=== PATIENT | male | born 1945 | race Caucasian/White ===

== ENCOUNTER → 2016-03-24 | Outpatient (CLI) | payer MEDICARE, OTHER | LOC: GMAB 12:59 | PROVIDERS: ATTEND Family Medicine | DX: I10 Essential (primary) hypertension (principal) ==

== ENCOUNTER 2016-05-08 05:55 | Day surgery (SDC) | payer MEDICARE ==
[2016-05-08] MEDS ORDERED: LACTATED RINGERS 1,000 ML ONE (06:11)
[2016-05-08] MEDS ORDERED: PROPOFOL 200 MG/20 ML VIAL IV ONE (07:00)
[2016-05-08 08:21] VITALS: BP 162/85; TEMP 97.3; O2SAT 100
--- NOTE | 2016-05-08 10:45 | OP ---
DATE OF PROCEDURE: 05/08/16 PREOPERATIVE DIAGNOSIS: 1. Colon cancer screen. POSTOPERATIVE DIAGNOSIS: 1. Normal colon to the cecum. PROCEDURE: 1. Colonoscopy. SURGEON: Og Samaniego MD. ANESTHESIA: MAC by Gareth Perez CRNA. ESTIMATED BLOOD LOSS: None. COMPLICATIONS: None apparent. TECHNIQUE: After informed consent was obtained from the patient, the patient was taken to the Endoscopy Suite and put in the left lateral decubitus position. After adequate IV sedation was obtained, a digital rectal exam was performed which revealed some old hemorrhoidal tags, decreased sphincter tone and no intraluminal masses and a normal sized, anodular prostate area. The colonoscope was then passed with good visualization all the way through the colon. The bowel prep was great. The cecum was readily identified by the presence of ileocecal valve and appendiceal orifice. The scope was then withdrawn slowly over the next 8 minutes and a good look at the entire colonic mucosa was obtained. There were no abnormalities, polyps, masses, etc., found. The scope was removed. The patient tolerated the procedure well. The patient was transported to the outpatient area in good condition. I have recommended a high fiber diet. He will followup with me on an as needed basis. #[id number] cc: Mono De Los Santos MD [facility]
== END 2016-05-08 08:10 | disposition home or self-care (01) ==
LOC: AMB 05:55
PROVIDERS: ATTEND Family Medicine
DX: Z12.11 Encounter for screening for malignant neoplasm of colon (principal); E11.9 Type 2 diabetes mellitus without complications; I10 Essential (primary) hypertension; E78.00 Pure hypercholesterolemia, unspecified; Z79.82 Long term (current) use of aspirin; Z79.899 Other long term (current) drug therapy
CPT/HCPCS: 00810; 36416; 82948; G0121; J3490; J7120

== ENCOUNTER → 2017-03-30 | Outpatient (CLI) | payer MEDICARE | END | disposition home or self-care (01) | LOC: GMAM 10:56 | PROVIDERS: ATTEND Family Medicine | DX: Z12.5 Encounter for screening for malignant neoplasm of prostate (principal); I10 Essential (primary) hypertension | CPT/HCPCS: 84443; G0103 ==

== ENCOUNTER → 2017-06-08 | Outpatient (CLI) | payer MEDICARE, OTHER ==
--- NOTE | 2017-06-08 09:11 | RAD ---
EXAM DESCRIPTION: Pelvis CLINICAL HISTORY: 71 years Male, PAIN IN LEFT HIP COMPARISON: None FINDINGS: Evaluation of the pelvis with attention to the hips demonstrates mild degenerative changes, slightly worse on the left than the right but without fracture or dislocation or destructive process. No soft tissue masses are noted in the bones are normally mineralized. IMPRESSION: No acute injury noted. Electronically signed by: Sage Herrera MD 06/08/2017 9:10 AM CDT
== END ==
LOC: RAD 08:05
PROVIDERS: ATTEND Orthopaedic Surgery
DX: M25.551 Pain in right hip (principal); M25.552 Pain in left hip

== ENCOUNTER → 2018-03-24 | Outpatient (CLI) | payer MEDICARE, OTHER | LOC: GMAE 11:11 | PROVIDERS: ATTEND Family Medicine | DX: I10 Essential (primary) hypertension (principal) ==

== ENCOUNTER → 2018-04-08 | Outpatient (CLI) | payer MEDICARE, OTHER ==
--- NOTE | 2018-04-08 13:50 | US ---
EXAM DESCRIPTION: Aorta: Ultrasound. CLINICAL HISTORY: Z13.89 AAA SCREENING COMPARISON: CT scan abdomen and pelvis with IV contrast 05/05/2007. TECHNIQUE: Transcutaneous scanning: Two-dimensional and Doppler modes. FINDINGS: Abdominal aorta diameter - Proximal: 2.0 x 1.9 cm. Mid: 2.7 x 2.5 cm. Distal: 2.1 x 1.8 cm. Common Iliac diameter - Right: 9.5 mm. Left: 9.2 mm. Other: Atherosclerotic intimal wall changes. IMPRESSION: Ectasia of the abdominal aorta but no aneurysm. Greatest diameter of the mid segment which is increased slightly compared to the prior CT scan of the abdominal aorta April 2007. Electronically signed by: Parminder Ogden MD 04/08/2018 1:48 PM FACIAL OPERATOR
== END ==
LOC: US 09:06
PROVIDERS: ATTEND Family Medicine
DX: Z13.89 Encounter for screening for other disorder (principal); I77.811 Abdominal aortic ectasia

== ENCOUNTER → 2019-03-31 | Outpatient (CLI) | payer MEDICARE, OTHER | LOC: GMAE 11:19 | PROVIDERS: ATTEND Family Medicine | DX: I10 Essential (primary) hypertension (principal); E11.9 Type 2 diabetes mellitus without complications; E29.9 Testicular dysfunction, unspecified; Z12.5 Encounter for screening for malignant neoplasm of prostate | CPT/HCPCS: 84403; 84443; G0103 ==

== ENCOUNTER 2019-07-11 05:36 | Day surgery (SDC) | payer MEDICARE, OTHER ==
[2019-07-11] MEDS ORDERED: MOXIFLOXACIN HCL (OPHTH) 1 DROP DROPS ONE (05:51)
[2019-07-11] MEDS ORDERED: TROP1%/CYCLOPEN 1%/PHENYL 2.5% DROPS ONE (05:52)
[2019-07-11] MEDS ORDERED: PROPARACAINE 0.5% OPHTH SOL 15 ML BTTL ONE (05:52)
[2019-07-11] MEDS ORDERED: MIDAZOLAM INJ 2 MG/2 ML VIAL ONE (10:44)
[2019-07-11] MEDS ORDERED: PROPARACAINE 0.5% OPHTH SOL 15 ML BTTL LEFT_EYE ONE (10:47)
[2019-07-11] MEDS ORDERED: LIDOCAINE 1% MPF 2 ML VIAL INJ ONE (11:00)
[2019-07-11] MEDS ORDERED: DEXAMETHASONE 0.1% OPHTH SOL 1 DROP LEFT_EYE ONE ×2 (11:01→11:09)
[2019-07-11] MEDS ORDERED: TOBRAMYCIN SULF 0.3 % OPHT SOL 1 DROP LEFT_EYE ONE ×2 (11:01→11:09)
[2019-07-11] MEDS ORDERED: MOXIFLOXACIN HCL (OPHTH) 1 DROP DROPS LEFT_EYE ONE ×2 (11:01→11:09)
[2019-07-11] MEDS ORDERED: BRIMONIDINE 0.2% OPHTH DROPS LEFT_EYE ONE ×2 (11:02→11:09)
== END 2019-07-11 11:55 | disposition home or self-care (01) ==
LOC: AMB 05:36
PROVIDERS: ATTEND Ophthalmology
DX: H25.12 Age-related nuclear cataract, left eye (principal); I10 Essential (primary) hypertension; E11.9 Type 2 diabetes mellitus without complications; I25.10 Atherosclerotic heart disease of native coronary artery without angina pectoris; I25.2 Old myocardial infarction; Z87.891 Personal history of nicotine dependence; Z79.82 Long term (current) use of aspirin; Z79.84 Long term (current) use of oral hypoglycemic drugs; Z79.899 Other long term (current) drug therapy
CPT/HCPCS: 00142; 36416; 66984; 82948; J2250

== ENCOUNTER 2019-07-25 05:35 | Day surgery (SDC) | payer MEDICARE, OTHER ==
[2019-07-25] MEDS ORDERED: TROP1%/CYCLOPEN 1%/PHENYL 2.5% DROPS ONE (05:53)
[2019-07-25] MEDS ORDERED: PROPARACAINE 0.5% OPHTH SOL 15 ML BTTL ONE (05:53)
[2019-07-25] MEDS ORDERED: MOXIFLOXACIN HCL (OPHTH) 1 DROP DROPS ONE (05:53)
[2019-07-25] MEDS ORDERED: MIDAZOLAM INJ 2 MG/2 ML VIAL ONE (09:35)
[2019-07-25] MEDS ORDERED: LIDOCAINE 1% 2 ML VIAL INJ ONE ×2 (09:36→10:03)
[2019-07-25] MEDS ORDERED: PROPARACAINE 0.5% OPHTH SOL 15 ML BTTL RIGHT_EYE ONE ×2 (09:36→10:03)
[2019-07-25] MEDS ORDERED: DEXAMETHASONE 0.1% OPHTH SOL 1 DROP RIGHT_EYE ONE ×2 (09:37→10:03)
[2019-07-25] MEDS ORDERED: MOXIFLOXACIN HCL (OPHTH) 1 DROP DROPS RIGHT_EYE ONE ×2 (09:37→10:03)
[2019-07-25] MEDS ORDERED: BRIMONIDINE 0.2% OPHTH DROPS RIGHT_EYE ONE ×2 (09:38→10:03)
[2019-07-25] MEDS ORDERED: TOBRAMYCIN SULF 0.3 % OPHT SOL 1 DROP RIGHT_EYE ONE ×2 (09:38→10:03)
== END 2019-07-25 11:00 | disposition home or self-care (01) ==
LOC: AMB 05:35
PROVIDERS: ATTEND Ophthalmology
DX: E11.36 Type 2 diabetes mellitus with diabetic cataract (principal); H25.11 Age-related nuclear cataract, right eye; E66.9 Obesity, unspecified; I10 Essential (primary) hypertension; F17.220 Nicotine dependence, chewing tobacco, uncomplicated; Z79.82 Long term (current) use of aspirin; Z79.84 Long term (current) use of oral hypoglycemic drugs; Z79.899 Other long term (current) drug therapy
CPT/HCPCS: 00142; 36416; 66984; 82948; J2250

== ENCOUNTER 2020-03-11 10:22 | Emergency (ER) | payer MEDICARE, OTHER ==
[2020-03-11] MEDS ORDERED: DIPHENOXYLATE HCL/ATROPINE 2.5 MG TAB PO ONE (10:57)
[2020-03-11] MEDS ORDERED: SODIUM CHLORIDE 0.9% 1000ML 1,000 ML IVS ONE (10:57)
--- NOTE | 2020-03-11 11:01 | ED.PDOC ---
History of Present Illness - General Chief Complaint: Respiratory Problem Stated Complaint: fatigue r/t COVID Time Seen by Provider: 03/11/20 10:56 Additional Information: Patient is a 74-year-old male who presents to the ED with chief complaint of diarrhea. Patient has had diarrhea for the past 8 days which prompted him to obtain a Covid test which was positive 3 days ago. Patient complains of mild muscle aches and fatigue and says he feels dehydrated. He has had poor p.o. intake over the past few days and is drinking insufficient amount of fluids according to his . Patient denies any abdominal pain, chest pain, shortness of breath, cough, nausea, vomiting. He denies any black or bloody stools. Patient indicates that his diarrhea is unusual for him and that in general he has no abdominal problems. Review of Systems - Review of Systems Constitutional: States: weakness. Denies: chills, fever EENTM: States: no symptoms reported Respiratory: States: no symptoms reported. Denies: cough, short of breath Cardiology: States: no symptoms reported. Denies: chest pain, palpitations Gastrointestinal/Abdominal: States: see HPI, diarrhea. Denies: nausea, vomiting Genitourinary: States: no symptoms reported. Denies: dysuria Skin: States: no symptoms reported. Denies: rash Neurological: Denies: headache All other Systems: Reviewed and Negative Past Medical History (General) - Patient Medical History Hx Congestive Heart Failure: No Hx Diabetes: No Hx MRSA: No Family Medical History - Family History Mother Family History: No Known Physical Exam - Physical Exam General Appearance: Alert, Comfortable, No apparent distress, Well Developed, Well Nourished Eyes, Ears, Nose, Throat Exam: normal ENT inspection Neck: supple, normal inspection Respiratory: chest non-tender, lungs clear, normal breath sounds, no respiratory distress, no accessory muscle use Cardiovascular/Chest: normal peripheral pulses, regular rate, rhythm, no edema, no gallop, no JVD, no murmur Peripheral Pulses: No deficit Gastrointestinal/Abdominal: normal bowel sounds, non tender, soft, no organomegaly, no pulsatile mass Back Exam: normal inspection, no CVA tenderness, no vertebral tenderness Extremity: normal range of motion, non-tender, normal inspection Neurologic: shellfish shucker II-XII nml as tested, no motor/sensory deficits, alert, normal mood/affect, oriented x 3 Skin Exam: normal color, warm/dry Progress - Progress Progress: 03/11/20 11:03 Differential diagnosis includes but is not limited to dehydration, electrolyte disorder, Covid, colitis. Colitis is ruled out with absence of abdominal t enderness to palpation and pain. 03/11/20 45 EKG: Normal sinus rhythm, rate 65, normal axis, normal QRS, prolonged DE, Q waves septal, normal ST segment, nonspecific T wave changes, negative STEMI. 03/11/20 12:29 Patient reassessed and he is feeling much better at this time following IV fluids. Patient's labs are unremarkable including his creatinine, his stool studies are pending. Will DC with mckay Price and patient to follow-up with Dr. Brown tomorrow as previously scheduled for a virtual visit. Dr. Brown will be able to review patient's stool studies. Vital signs stable, patient is NAD and looks clinically well and I believe is safe for discharge with outpatient follow-up. Follow-up instructions, discharge instructions and return to ED precautions discussed with patient. Patient voices understanding and willingness to comply with instructions. All laboratory and/or radiographic results have been discussed with the patient, and all questions answered. Patient is happy with plan. Departure - Departure Clinical Impression: COVID-19, Volume depletion, gastrointestinal loss Diarrhea Qualifiers: Diarrhea type: unspecified type Qualified Code(s): R19.7 - Diarrhea, unspecified Time of Disposition: 12:32 Disposition: Discharge to Home or Self Care Condition: Good Departure Forms: ED Discharge - Pt. Copy, Patient Portal Self Enrollment Diet: resume usual diet Referrals: SUSU BROWN MD [Primary Care Provider] - 1-2 Days Prescriptions: Diphenoxylate/Atropine [Lomotil Tab] 5 mg PO BID PRN #15 tab PRN Reason: Diarrhea Home Medications: Ambulatory Orders Aspirin [Aspirin Adult Low Dose] 81 mg PO BEDTIME 05/05/16 Ezetimibe-Simvastatin [Vytorin] 1 tab PO BEDTIME 05/05/16 Finasteride [Proscar] 5 mg PO BEDTIME 05/05/16 Metformin HCl [Metformin Hydrochloride] 1,000 mg PO DAILY 05/05/16 Metformin HCl [Metformin Hydrochloride] 500 mg PO BEDTIME 05/05/16 Diphenoxylate/Atropine [Lomotil Tab] 5 mg PO BID PRN #15 tab 03/11/20 Enalapril Maleate 20 mg PO DAILY 03/11/20 Furosemide 20 mg PO DAILY 03/11/20 Linagliptin [Tradjenta] 5 mg PO DAILY 03/11/20 Spironolactone 25 mg PO DAILY 03/11/20
[2020-03-11 11:51] VITALS: O2SAT 95
[2020-03-11 12:50] VITALS: BP 113/57; TEMP 97.3
== END 2020-03-11 12:45 | disposition home or self-care (01) ==
LOC: ER 10:22
DX: U07.1 COVID-19 (principal); E86.9 Volume depletion, unspecified; R19.7 Diarrhea, unspecified; I45.81 Long QT syndrome; Z79.82 Long term (current) use of aspirin; Z79.84 Long term (current) use of oral hypoglycemic drugs; Z79.899 Other long term (current) drug therapy
CPT/HCPCS: 36415; 80053; 82270; 85025; 87045; 87046; 93005; J7030

== ENCOUNTER 2020-03-14 16:45 | Inpatient (IN) | payer MEDICARE ==
--- NOTE | 2020-03-14 17:06 | ED.PDOC ---
History of Present Illness - General Time Seen by Provider: 03/14/20 17:06 - History of Present Illness Initial Comments: 74-year-old male positive past medical history presents with spouse to ED complaining of worsening shortness of breath with COVID-19. Patient resulted positive on Covid test from 03/08/2020 and had been symptomatic for 3 to 4 days prior. Patient been placed on azithromycin as well as Lomotil for his diarrhea patiently. Patient states today his oxygen saturation became worse and in the 80s at home along with worsening shortness of breath. Patient has associated headache, generalized fatigue, cough, chills without fever, diarrhea is nearly resolved, generalized body aches, and fatigue. Denies fever, denies CP, denies n/v, denies loss of taste/smell. Denies history of similar symptoms. Denies alleviating/aggravating factors. Patient has no other signs, symptoms, complaints. Allergies/Adverse Reactions: Allergies NO KNOWN ALLERGY Allergy (Verified 05/08/16 06:45) Home Medications: Ambulatory Orders Ezetimibe-Simvastatin [Vytorin] 1 tab PO BEDTIME 05/05/16 Finasteride [Proscar] 5 mg PO BEDTIME 05/05/16 Metformin HCl [Metformin Hydrochloride] 1,000 mg PO DAILY 05/05/16 Metformin HCl [Metformin Hydrochloride] 500 mg PO BEDTIME 05/05/16 Diphenoxylate/Atropine [Lomotil Tab] 5 mg PO BID PRN #15 tab 03/11/20 Enalapril Maleate 20 mg PO BID 03/11/20 Furosemide 20 mg PO DAILY 03/11/20 Linagliptin [Tradjenta] 5 mg PO DAILY 03/11/20 Spironolactone 25 mg PO DAILY 03/11/20 Carvedilol [Coreg] 12.5 mg PO BID 03/14/20 Diphenoxylate/Atropine [Lomotil Tab] 5 mg PO PRN PRN 03/14/20 Review of Systems - Review of Systems Constitutional: States: chills, other - fatigue. Denies: fever EENTM: States: nose congestion. Denies: throat pain Respiratory: States: cough, short of breath Cardiology: Denies: chest pain, edema, palpitations Gastrointestinal/Abdominal: States: diarrhea. Denies: abdominal pain, nausea, vomiting Genitourinary: Denies: dysuria, frequency Musculoskeletal: States: muscle pain. Denies: neck pain Skin: Denies: change in color, rash Neurological: States: headache, other - no dizziness Hematologic/Lymphatic: Denies: easy bruising Past Medical History (General) - Patient Medical History Hx Seizures: No Hx Stroke: No Hx Asthma: No Hx of COPD: No Hx Cardiac Disorders: Yes - defibrillator Hx Congestive Heart Failure: No Hx Hypertension: Yes Hx Thyroid Disease: No Hx Diabetes: No Hx Renal Disease: No Hx Cancer: Yes - skin Hx MRSA: No - Social History Hx Tobacco Use: Yes Family Medical History - Family History Mother Family History: No Known Father Living Status: Cause of : [place] Physical Exam - Physical Exam General Appearance: Alert, No apparent distress, Other - No longer distressed since he is on supplemental oxygen. Eye Exam: bilateral normal, bilateral other - no scleral icterus ENT Exam: normal ENT inspection Neck: supple, normal inspection, trachea midline Respiratory: respiratory distress - now resolved on supplemental oxygen, crackles - minimal tachypnea, no accessory muscle useage, not diminished, rales, other Cardiovascular/Chest: normal peripheral pulses, regular rate, rhythm, no JVD, no murmur, other - trace pitting edema to BLE, symmetric Gastrointestinal/Abdominal: normal bowel sounds, non tender, soft, other - no rebound, no guarding, no peritoneal signs, no CVA TTP bilaterally Extremity: non-tender, normal inspection, normal capillary refill Neurologic: alert, normal mood/affect, oriented x 3 Skin Exam: normal color, warm/dry, other - no rash Progress - Progress Progress: Harley Keller DO Emergency Medicine Physician [facility][id number] Appropriate PPE of surgical mask, gown, gloves, and eye protection (if encounter >5 minutes) utilized with every patient encounter; in accordance with hospital policy. Presents for COVID 19 pneumonia with acute respiratory failure with hypoxia requiring supplemental oxygen. I will perform imaging, EKG, labs, provide appropriate pharmacotherapy, and continue to monitor/reassess. Dispo will depend on imaging, EKG, lab results, and overall course in ED; however, pt will require admission due to the hypoxia. I have very discussed need for admission during initial examination patient with both patient and family member. They both agree with admission. 18:01 Lab notify is that troponin is 0.17 and D-dimer is greater than 2000. I will order CTA Chest as well as Lovenox at 1 mg/kg. 19:57 Consulted with hospitalist Jose L Delcid and discussed patient's case in ED along with all current findings. He accepts patient for admission. Multiple rechecks the patient throughout ED encounter. No acute distress, vital signs stable, and patient with continued stability and improvement noted throughout ED course with no acute decompensations. - Results/Orders Results/Orders: EKG @1744: read @1747. SR @ 71 with PAC, borderline 1st degree AV block, nl axis, SD 206, QRS and QTc wnl, no ST elevations/depressions, nonspecific ST/T- wave changes. No STEMI. 03/14/20 17:13 IV Care:Saline Lock per Protoc QSHIFT IV:Start .ONCE 03/14/20 17:15 EKG STAT 03/14/20 20:04 ED Intent to Admit Routine Laboratory Results - last 24 hr 03/14/20 03/14/20 03/14/20 17:32 17:32 17:32 WBC 5.9 RBC 4.14 L Hgb 12.7 L Hct 36.9 L MCV 89.1 MCH 30.8 MCHC 34.5 RDW 13.7 Plt Count 201 MPV 7.7 Absolute Neuts (auto) 4.60 Absolute Lymphs (auto) 0.90 L Absolute Monos (auto) 0.30 Absolute Eos (auto) 0.00 Absolute Basos (auto) 0.00 Neutrophils % 78.6 H Lymphocytes % 15.9 L Monocytes % 5.1 Eosinophils % 0.2 L Basophils % 0.2 D-Dimer, Quantitative 2370.0 H* Sodium 141 Potassium 4.1 Chloride 106 Carbon Dioxide 24 Anion Gap 15.1 BUN 37 H Creatinine 1.24 BUN/Creatinine Ratio 29.8 H Random Glucose 146 H Serum Osmolality 292.6 Calcium 8.2 L Magnesium 1.7 L Total Bilirubin 1.2 H AST 86 H ALT 55 Alkaline Phosphatase 47 Troponin I Serum Total Protein 7.0 Albumin 2.9 L Globulin 4.1 H Albumin/Globulin Ratio 0.7 L 03/14/20 17:32 WBC RBC Hgb Hct MCV MCH MCHC RDW Plt Count MPV Absolute Neuts (auto) Absolute Lymphs (auto) Absolute Monos (auto) Absolute Eos (auto) Absolute Basos (auto) Neutrophils % Lymphocytes % Monocytes % Eosinophils % Basophils % D-Dimer, Quantitative Sodium Potassium Chloride Carbon Dioxide Anion Gap BUN Creatinine BUN/Creatinine Ratio Random Glucose Serum Osmolality Calcium Magnesium Total Bilirubin AST ALT Alkaline Phosphatase Troponin I 0.17 H* Serum Total Protein Albumin Globulin Albumin/Globulin Ratio EXAM DESCRIPTION: Chest,1 View CLINICAL HISTORY: Shortness of breath COMPARISON: Chest radiograph dated March 25, 2018 TECHNIQUE: One view radiograph of the chest FINDINGS: Postsurgical changes with median sternotomy wires. Redemonstrated single lead left subclavian approach cardiac pacer. Cardiac silhouette shows cardiomegaly with central pulmonary vascular congestion. Increased alveolar opacities in the bilateral mid and lower lung zones. No significant pleural effusion. No pneumothorax. No acute osseous abnormality. IMPRESSION: 1. Cardiomegaly and central pulmonary vascular congestion compatible with congestive heart failure. 2. Alveolar opacities bilateral mid and lower lung zones most likely represent pulmonary edema. Underlying infiltrate cannot be entirely excluded. Electronically signed by: Fausto Munoz MD 03/14/2020 5:57 PM RN TRAUMA EXAM DESCRIPTION: CTA Chest 03/14/2020 7:44 PM RN TRAUMA CLINICAL HISTORY: 74 years, Male, SOB, elevated d-dimer and troponin COMPARISON: None. PROCEDURE: Multiple transaxial tomograms of the chest were obtained from the lung apices through the lung bases utilizing 2 mm slice thickness at 2 mm interval reconstruction after the administration of large bolus of IV contrast for complete opacification of the pulmonary arteries. Subsequent maximum intensity projection images were generated in the coronal and sagittal plane for review. An individualized dose optimization technique, Automated Exposure Control, was utilized for the performed procedure. FINDINGS: The lungs parenchyma demonstrate the presence of lytic the moderate bilateral upper and lower lobe lobe peripheral groundglass opacities with interlobular septal thickening-crazy paving, suspicious for COVID-19 pneumonia. No significant masses and/or consolidations are identified. The trachea mainstem bronchus demonstrate to be normal. There is no significant pericardial or pleural effusions. The thoracic aorta demonstrate minimal intimal calcifications extending down to the descending portion. No evidence for thoracic aortic dissection. The heart is normal in size. No evidence for right ventricular strain. There is coronary artery calcification. Sternotomy wires and pericardiac clips correspond to previous CABG. There is a single lead pacemaker via left subclavian. Scattered subclinical mediastinal lymph nodes are noted within the right paratracheal stripe, prevascular space and AP window. There is no significant mediastinal and/or hilar lymphadenopathy. There is suboptimal opacification of the pulmonary arteries with the majority of the contrast now at the thoracic aorta. No major filling defects are seen within the Central portions of the pulmonary arteries. The axillary regions demonstrate to be clear. The bone windows demonstrate minimal anterior spondylosis. The visualized portions of the upper abdomen demonstrate to be decreased attenuation of the liver suggesting mild fatty infiltration questionable hyperdensity within the gallbladder could correspond to cholelithiasis.. IMPRESSION: NO EVIDENCE FOR THORACIC AORTIC THORACIC DISSECTION. SUBOPTIMAL PACIFICATION OF THE CORONARY ARTERIES WITH NO DEFINITIVE EVIDENCE FOR SIGNIFICANT MAJOR FILLING DEFECTS ALLOWING FOR THE TIME OF IMAGING. COMMONLY REPORTED IMAGING FEATURES OF COVID-19 PNEUMONIA ARE PRESENT. OTHER PROCESSES SUCH INFLUENZA PNEUMONIA AND ORGANIZING PNEUMONIA, CAN be SEEN WITH DRUG TOXICITY AND CONNECTIVE TISSUE DISEASE, CAN CAUSE A SIMILAR IMAGING PATTERN. (REFERENCE: [email or web address]/DOI/[email or web address] [email or web address]). STATUS POST CABG CORONARY ATHEROSCLEROSIS AND PACEMAKER IN PLACE. SUBCLINICAL MEDIASTINAL LYMPH NODES MOST LIKELY REACTIVE IN NATURE. FATTY INFILTRATION OF THE LIVER. QUESTIONABLE CHOLELITHIASIS. Electronically signed by: Fausto Bermudez MD 03/14/2020 7:51 PM RN TRAUMA Vital Signs - 24 hr 03/14/20 03/14/20 03/14/20 17:20 19:00 20:00 Temperature 97.6 F Pulse Rate [ 62 63 65 monitor] Respiratory 20 20 20 Rate Blood Pressure 135/63 117/66 117/60 [Left Arm] O2 Sat by Pulse 87 L 92 L 92 L Oximetry Departure - Departure Clinical Impression: Pneumonia due to COVID-19 virus, Acute respiratory failure with hypoxia, Elev ated d-dimer, NSTEMI (non-ST elevated myocardial infarction), Hypocalcemia, Hypomagnesemia Disposition: Admit Patient Condition: Poor Home Medications: Ambulatory Orders Ezetimibe-Simvastatin [Vytorin] 1 tab PO BEDTIME 05/05/16 Finasteride [Proscar] 5 mg PO BEDTIME 05/05/16 Metformin HCl [Metformin Hydrochloride] 1,000 mg PO DAILY 05/05/16 Metformin HCl [Metformin Hydrochloride] 500 mg PO BEDTIME 05/05/16 Diphenoxylate/Atropine [Lomotil Tab] 5 mg PO BID PRN #15 tab 03/11/20 Enalapril Maleate 20 mg PO BID 03/11/20 Furosemide 20 mg PO DAILY 03/11/20 Linagliptin [Tradjenta] 5 mg PO DAILY 03/11/20 Spironolactone 25 mg PO DAILY 03/11/20 Carvedilol [Coreg] 12.5 mg PO BID 03/14/20 Diphenoxylate/Atropine [Lomotil Tab] 5 mg PO PRN PRN 03/14/20 Decision To Admit - Decistion To Admit Decision to Admit Reason: Admit from ER Decision to Admit Date: 03/14/20 Decision to Admit Time: 17:15
[2020-03-14] MEDS ORDERED: DEXAMETHASONE INJ 10 MG/ML VIAL IV ONE (17:14)
--- NOTE | 2020-03-14 17:58 | RAD ---
EXAM DESCRIPTION: Chest,1 View CLINICAL HISTORY: Shortness of breath COMPARISON: Chest radiograph dated March 25, 2018 TECHNIQUE: One view radiograph of the chest FINDINGS: Postsurgical changes with median sternotomy wires. Redemonstrated single lead left subclavian approach cardiac pacer. Cardiac silhouette shows cardiomegaly with central pulmonary vascular congestion. Increased alveolar opacities in the bilateral mid and lower lung zones. No significant pleural effusion. No pneumothorax. No acute osseous abnormality. IMPRESSION: 1. Cardiomegaly and central pulmonary vascular congestion compatible with congestive heart failure. 2. Alveolar opacities bilateral mid and lower lung zones most likely represent pulmonary edema. Underlying infiltrate cannot be entirely excluded. Electronically signed by: Fausto Munoz MD 03/14/2020 5:57 PM INTERNET NETWORK SPECIALIST
[2020-03-14] MEDS ORDERED: ENOXAPARIN SODIUM 100 MG/ML SYG SUBCU ONE (18:13)
--- NOTE | 2020-03-14 19:53 | CT ---
EXAM DESCRIPTION: CTA Chest 03/14/2020 7:44 PM TRUCK LEASING MANAGER CLINICAL HISTORY: 74 years, Male, SOB, elevated d-dimer and troponin COMPARISON: None. PROCEDURE: Multiple transaxial tomograms of the chest were obtained from the lung apices through the lung bases utilizing 2 mm slice thickness at 2 mm interval reconstruction after the administration of large bolus of IV contrast for complete opacification of the pulmonary arteries. Subsequent maximum intensity projection images were generated in the coronal and sagittal plane for review. An individualized dose optimization technique, Automated Exposure Control, was utilized for the performed procedure. FINDINGS: The lungs parenchyma demonstrate the presence of lytic the moderate bilateral upper and lower lobe lobe peripheral groundglass opacities with interlobular septal thickening-crazy paving, suspicious for COVID-19 pneumonia. No significant masses and/or consolidations are identified. The trachea mainstem bronchus demonstrate to be normal. There is no significant pericardial or pleural effusions. The thoracic aorta demonstrate minimal intimal calcifications extending down to the descending portion. No evidence for thoracic aortic dissection. The heart is normal in size. No evidence for right ventricular strain. There is coronary artery calcification. Sternotomy wires and pericardiac clips correspond to previous CABG. There is a single lead pacemaker via left subclavian. Scattered subclinical mediastinal lymph nodes are noted within the right paratracheal stripe, prevascular space and AP window. There is no significant mediastinal and/or hilar lymphadenopathy. There is suboptimal opacification of the pulmonary arteries with the majority of the contrast now at the thoracic aorta. No major filling defects are seen within the Central portions of the pulmonary arteries. The axillary regions demonstrate to be clear. The bone windows demonstrate minimal anterior spondylosis. The visualized portions of the upper abdomen demonstrate to be decreased attenuation of the liver suggesting mild fatty infiltration questionable hyperdensity within the gallbladder could correspond to cholelithiasis.. IMPRESSION: NO EVIDENCE FOR THORACIC AORTIC THORACIC DISSECTION. SUBOPTIMAL PACIFICATION OF THE CORONARY ARTERIES WITH NO DEFINITIVE EVIDENCE FOR SIGNIFICANT MAJOR FILLING DEFECTS ALLOWING FOR THE TIME OF IMAGING. COMMONLY REPORTED IMAGING FEATURES OF COVID-19 PNEUMONIA ARE PRESENT. OTHER PROCESSES SUCH INFLUENZA PNEUMONIA AND ORGANIZING PNEUMONIA, CAN be SEEN WITH DRUG TOXICITY AND CONNECTIVE TISSUE DISEASE, CAN CAUSE A SIMILAR IMAGING PATTERN. (REFERENCE: [email or web address]/DOI/[email or web address] [email or web address]). STATUS POST CABG CORONARY ATHEROSCLEROSIS AND PACEMAKER IN PLACE. SUBCLINICAL MEDIASTINAL LYMPH NODES MOST LIKELY REACTIVE IN NATURE. FATTY INFILTRATION OF THE LIVER. QUESTIONABLE CHOLELITHIASIS. Electronically signed by: Fausto Bermudez MD 03/14/2020 7:51 PM TRUCK LEASING MANAGER
--- NOTE | 2020-03-14 20:25 | HP ---
SUPERVISING PHYSICIAN: Og Samaniego MD CHIEF COMPLAINT: Worsening shortness of breath with positive COVID testing. HISTORY OF PRESENT ILLNESS: Mr. Saenz is a 74-year-old male patient with a past medical history of previous myocardial infarction, diabetes, hypertension. He presents to the Emergency Room with his complaining of increasing shortness of breath. He was tested for COVID and found to be positive on 03/08/20 and actually had been symptomatic 3 to 4 days prior to being tested. At that time, he was started on azithromycin as well as Lomotil for diarrhea that he was apparently having. He endorses that on the day of admission in the ER, his oxygen saturations became worse in the 80s at home with increasing shortness of breath. He also had an associated headache, generalized weakness, fatigue, chills, but did not have any fever. He was not reporting any more diarrhea. No reported chest pains. Workup in the ER showed white count 5,900 with a left shift. Coagulation studies showed D-dimer elevated at 2370, fibrinogen elevated at 818. Chemistries showed creatinine 1.24. Troponin was elevated at 0.17. C-reactive protein was 15.9, BNP 904. Due to his elevated D- dimer, chest/thoracic CTA was done which showed no evidence of thoracic aortic dissection, but no significant evidence of significant major filling defects indicating no obvious pulmonary embolism. There were common findings on imaging associated with COVID pneumonia. He was started on treatment with Decadron and Lovenox. He was denying any actual chest pains and EKG in the ER showed sinus rhythm at 71 with PACs with first degree AV block, but no ST elevation or depression. There were some nonspecific changes in the STT waves, but no obvious evidence of acute STEMI. Given his advanced age and recently positive test for COVID and with concerns for developing complications of COVID pneumonitis with pneumonia, ongoing shortness of breath and being hypoxic on room air, the patient is going to be admitted for further treatment and evaluation. PAST MEDICAL HISTORY: 1. Hypertension. 2. Previous myocardial infarction with stent placement and coronary artery bypass graft. 3. Benign prostatic hypertrophy. 4. Diabetes mellitus, type 2. PAST SURGICAL HISTORY: 1. Defibrillator implantation. 2. Coronary artery bypass graft. HOME MEDICATIONS: 1. Lomotil 5 mg daily. 2. Enalapril 20 mg b.i.d. 3. Coreg 12 mg b.i.d. 4. Spironolactone 25 mg daily. 5. Metformin 500 mg at bedtime. 6. Metformin 1000 mg daily. 7. Tradjenta 5 mg daily. 8. Lasix 20 mg daily. 9. Proscar 5 mg daily. 10. Vytorin 1 tablet at bedtime. ALLERGIES: NO KNOWN DRUG ALLERGIES. FAMILY HISTORY: Noncontributory to current admission. SOCIAL HISTORY: The patient utilizes smokeless tobacco. He does not drink alcohol or use illicit drugs. He is retired, and lives in [place], [place]. REVIEW OF SYSTEMS: CONSTITUTIONAL: Positive for generalized fatigue and chills, reported fever. HEENT: Denies headaches, sore throats, earaches, vision changes. He does have some nasal congestion. RESPIRATORY: Positive for coughing and shortness of breath as noted in history of present illness. CARDIOVASCULAR: Denies chest pain, palpitations, edema or syncopal episodes. GASTROINTESTINAL: Denies nausea, vomiting or abdominal pain. He has had some reported diarrhea since being diagnosed with COVID, but that is resolved. GENITOURINARY: Denies dysuria, hematuria, polyuria. MUSCULOSKELETAL: Generalized muscle pains, but denies neck pain. SKIN: Denies lesions, rashes, moles or unexplained changes. NEUROLOGIC: Denies dizziness, headaches, vision changes, syncopal episodes, ataxia or other neuro motor focal deficits. HEMATOLOGIC: Denies unexplained bleeding, bruising or transfusion reactions. PHYSICAL EXAMINATION: VITAL SIGNS: In the ER initially, he was showing 87% room saturations, respirations 20, blood pressure 153/60, heart rate 62, afebrile at 97.6. GENERAL: The patient does not look to be in any distress. He is wearing oxygen. He is comfortable. He is alert. HEENT: Tympanic membranes clear bilaterally. Oropharynx is pink, moist without any lesions. NECK: Supple, nontender with full range of motion. No jugular venous distention noted. RESPIRATORY: Lung sounds are fairly clear, just diminished towards the bases. No obvious rhonchi or rales. CARDIOVASCULAR: Regular rate and rhythm without any appreciable murmurs, gallops, or rubs. ABDOMEN: Nontender on palpation. Positive bowel sounds. BACK: No CVA or vertebral tenderness. EXTREMITIES: There is no cyanosis, clubbing. There is noted trace edema to the bilateral lower extremities. NEUROLOGIC: Cranial nerves II-XII are grossly intact. Facial features are symmetrical. Extraocular movements are within normal limits. There is no nystagmus noted. The patient is alert and oriented times three. SKIN: Warm, pink and dry. LABORATORY: White count 5,900, hemoglobin 12.7, hematocrit 36.9, platelet count 201,000. Differential showed a slight left shift. Coagulation studies show D- dimer elevated at 2370. Fibrinogen elevated at 818. PTT 39.9. Chemistries show normal electrolytes. Creatinine 1.24, calcium 8.2, magnesium a little low at 1.7. Total bilirubin 1.2, AST a little elevated at 86. Otherwise, ALT and alkaline phosphatase were normal. LDH elevated at 450. He did have an elevated troponin at 0.17. C-reactive protein 15.9 . BNP 904. RADIOLOGY: CT of the chest per radiologic interpretation showed no evidence of thoracic aortic dissection. There was note of suboptimal opacification of the coronary arteries with no definite evidence of significant major filling defects allowing for poor imaging. Otherwise, no mention of pulmonary embolism. There were common findings present to indicate COVID pneumonia. Also of note was fatty infiltration of the liver with question of cholelithiasis. Chest x-ray showed cardiomegaly with central pulmonary vascular congestion compatible with congestive heart failure. There was no alveolar opacities in bilateral lower lung zones, most likely representing pulmonary edema. ASSESSMENT: 1. COVID pneumonitis. 2. Bilateral pneumonia, secondary to #1, diagnosed with COVID greater than 10 days previously, previously treated with azithromycin. 3. Elevated troponin, likely due to underlying congestive heart failure with slight exacerbation due to ischemic demand from COVID pneumonia. 4. Elevated BNP with no formal mention of congestive heart failure with echocardiogram pending. 5. Hypomagnesemia. 6. Elevated transaminases with some evidence of fatty liver disease on CT. 7. Question of cholelithiasis noted on CT on admission. 8. Diabetes mellitus, type 2, on oral therapy. 9. History of previous myocardial infarctions. 10. Hypertension. 11. History of benign prostatic hypertrophy. PLAN: Mr. Saenz is going to be admitted for COVID pneumonitis with associated pneumonia. He did have some concerning findings due to his hypoxemia and elevated troponin, but not having any symptomatology in regards to his EKG or chest pain reported. It was felt more likely his bumped troponin was related to underlying congestive heart failure exacerbated by his ischemic demand due to hypoxia associated with his COVID. I will go ahead and order an echocardiogram unless we can rupinder one down from next door. I think he sees Dr. Brown. He is on Lasix and further treatment with that. We will hold off on fluids and continue home medications. I do not think he needs any additional Lasix at this point, but we will monitor that closely. He is on standard treatment for COVID with Remdesivir, Rocephin, azithromycin, Decadron. He may need to be on more aggressive management with his sugars considering his Decadron. He will be on sliding scale insulin per protocol. He is on DVT prophylaxis with elevated D- dimer significantly at 2300, he was initially given a dose in the ER of 1 mg per kg. I will continue that regimen q.12h. and reevaluate clinically. I anticipate his length of stay to be at least 2 to 3 days. As we can titrate him down to acceptable O2 levels, he can discharge home. Until that point, we will continue to monitor and treat as needed. #[id number] MTDD
[2020-03-14] MEDS ORDERED: METFORMIN HCL 500 MG PO SCH (21:00)
[2020-03-14] MEDS ORDERED: DEXTROSE 50% 25 GM/50 ML SYG IV PRN (21:11)
[2020-03-14] MEDS ORDERED: ONDANSETRON INJ 4 MG/2 ML VIAL IV PRN (21:11)
[2020-03-14] MEDS ORDERED: SODIUM CHLORIDE 0.9% (FLUSH) 10 ML SYG IV PRN (21:11)
[2020-03-14] MEDS ORDERED: GLUCAGON INJ 1 MG VIAL SUBCU PRN (21:11)
[2020-03-14] MEDS ORDERED: ACETAMINOPHEN 325 MG TAB PO PRN (21:11)
[2020-03-14] MEDS ORDERED: MAGNESIUM SULFATE PREMIX 2GM 2 GM in PREMIX BAG 1 BAG IVPB ONE (21:14)
[2020-03-14] MEDS ORDERED: ALBUTEROL INHALER 64 PUFF/8GM INH PRN (21:14)
[2020-03-14] MEDS ORDERED: REMDESIVIR 200 MG in SODIUM CHLORIDE 0.9% 250ML 250 ML IVPB ONE (21:16)
[2020-03-14] MEDS ORDERED: MAGNESIUM SULFATE PREMIX 2GM 50 ML IVPB ONE (21:32)
[2020-03-14] MEDS ORDERED: AZITHROMYCIN IV 500 MG VIAL IVPB ONE (21:32)
[2020-03-14] MEDS ORDERED: SODIUM CHL 0.9% 50ML MIN-BAG+ 50 ML IVPB ONE (21:33)
[2020-03-14] MEDS ORDERED: REMDESIVIR IV 100 MG VIAL ONE ×2 (21:33→21:34)
[2020-03-14] MEDS ORDERED: cefTRIAXone SODIUM 1 GM VIAL ONE (21:33)
[2020-03-14] MEDS ORDERED: SODIUM CHLORIDE 0.9% 250ML 250 ML ONE (21:33)
[2020-03-14] MEDS: IV SET AND CAP CHANGE INJ INJ SCH (21:50)
[2020-03-14] MEDS: cefTRIAXone SODIUM 1 GM in SODIUM CHL 0.9% 50ML MIN-BAG+ 50 ML IVPB SCH (21:50)
[2020-03-14] MEDS: AZITHROMYCIN IV 500 MG in SODIUM CHLORIDE 0.9% 250ML 250 ML IVPB SCH (22:44)
[2020-03-14] MEDS ORDERED: NON-FORMULARY MEDICATION 1 EA MIS (Enalapril Maleate [Enalapril Maleate] 20 MG) PO SCH (22:45)
[2020-03-14] MEDS ORDERED: ENALAPRIL MALEATE 5 MG TAB ONE (23:01)
[2020-03-14] MEDS: FINASTERIDE 5 MG TAB PO SCH (23:03)
[2020-03-14] MEDS: CARVEDILOL 12.5 MG TAB PO SCH (23:03)
[2020-03-15] MEDS ORDERED: PANTOPRAZOLE SODIUM IV 40 MG VIAL IV SCH (06:30)
--- NOTE | 2020-03-15 07:24 | RAD ---
EXAM: XR Chest, 1 View CLINICAL HISTORY: COVID PNA TECHNIQUE: Frontal view of the chest. COMPARISON: 03/14/2020 FINDINGS: Lungs: Stable bilateral interstitial and airspace consolidation relatively sparing the upper lobes. Pleural space: No pneumothorax. No pleural effusion. Heart: Stable cardiac enlargement. Mediastinum: No abnormality noted. Bones/joints: No osseous destruction or sclerosis noted. Tubes, lines and devices: Stable single lead cardiac defibrillator. IMPRESSION: Stable abnormalities as above. Electronically signed by: Arina Tang MD 03/15/2020 7:22 AM [facility]
[2020-03-15] MEDS ORDERED: FUROSEMIDE 40 MG TAB ONE (07:39)
[2020-03-15] MEDS ORDERED: ENALAPRIL MALEATE 5 MG TAB ONE (07:40)
[2020-03-15] MEDS: INSULIN LISPRO 100 UNITS/ML PEN SUBCU SCH ×4 (07:55→20:30)
[2020-03-15] MEDS: ALBUTEROL INHALER 64 PUFF/8GM INH SCH ×4 (08:15→20:30)
[2020-03-15] MEDS: DEXAMETHASONE INJ 10 MG/ML VIAL IV SCH (09:05)
[2020-03-15] MEDS: ENALAPRIL MALEATE 5 MG TAB PO SCH ×2 (09:06→20:10)
[2020-03-15] MEDS: FUROSEMIDE 40 MG TAB PO SCH (09:06)
[2020-03-15] MEDS: CARVEDILOL 12.5 MG TAB PO SCH ×2 (09:07→20:14)
[2020-03-15] MEDS: BIFIDOBACTERIUM INFANTIS 4 MG CAP PO SCH (09:07)
[2020-03-15] MEDS: SPIRONOLACTONE 25 MG TAB PO SCH (09:07)
[2020-03-15] MEDS: LINAGLIPTIN 5 MG TAB PO SCH (09:07)
[2020-03-15] MEDS: REMDESIVIR 100 MG in SODIUM CHLORIDE 0.9% 250ML 250 ML IVPB SCH (09:07)
[2020-03-15] MEDS: guaiFENesin ER TAB 600 MG TAB PO SCH ×2 (09:07→20:14)
[2020-03-15] MEDS: ENOXAPARIN SODIUM 100 MG/ML SYG SUBCU SCH ×2 (11:40→22:55)
--- NOTE | 2020-03-15 19:01 | PN ---
SUPERVISING PHYSICIAN: Og Samaniego M.D. DATE: 03/15/20 SUBJECTIVE: The patient is sitting up in bed. Had lots of questions about his lab and his plan of care. We discussed them at length. He denied any chest pain, nausea or vomiting, although he did say he still gets short of breath with any exertion. OBJECTIVE: VITAL SIGNS: Temperature 97.4, heart rate 74, blood pressure 123/67, respiratory rate 18 to 22, O2 saturation 93% on 4 liters nasal cannula. He had an ambulation study with Physical Therapy. He went to the bathroom without his oxygen and it dropped down into the low 80s without O2 and it took about 5 minutes to recover to 91%. He attempted to go to the bathroom with oxygen and he dropped to 89% and recovered within the next 1 to 2 minutes. RESPIRATORY: Diminished breath sounds throughout. CARDIAC: Regular rate and rhythm. NEUROLOGIC: He is awake, alert and oriented times three. LABORATORY: WBCs are 4,300 with hemoglobin 13.2, hematocrit 36.6. He has a left shift on his differential. His D-dimer is 1,650, fibrinogen is 799. Electrolytes are basically within normal limits. BUN 30, creatinine 1.08. Blood sugar is 243. AST 84, ALT 63, creatinine kinase 428, C reactive protein 15.6. RADIOLOGY: Chest x-ray shows stable abnormalities as per the chest x-ray report. ASSESSMENT: 1. COVID-19 pneumonitis with exertional hypoxia. 2. Bilateral pneumonia, secondary to #1, diagnosed with COVID greater than 10 days previously, previously treated with azithromycin. 3. Elevated troponin, likely due to underlying congestive heart failure with slight exacerbation due to ischemic demand from COVID pneumonia. 4. Elevated BNP with no formal mention of congestive heart failure with echocardiogram pending. 5. Hypomagnesemia. 6. Elevated transaminases with some evidence of fatty liver disease on CT. 7. Question of cholelithiasis noted on CT on admission. 8. Diabetes mellitus, type 2, on oral therapy. 9. History of previous myocardial infarctions. 10. Hypertension. 11. History of benign prostatic hypertrophy. PLAN: We will continue present supportive care. We will continue on the COVID- 19 guidelines. I have ordered an echocardiogram for today. With have a chest x-ray tomorrow. Will continue to titrate down his oxygen as tolerated. Will have aggressive pulmonary hygiene. #[id number] MTDD
[2020-03-15] MEDS: FINASTERIDE 5 MG TAB PO SCH (20:14)
[2020-03-15] MEDS: cefTRIAXone SODIUM 1 GM in SODIUM CHL 0.9% 50ML MIN-BAG+ 50 ML IVPB SCH (21:30)
[2020-03-15] MEDS: AZITHROMYCIN IV 500 MG in SODIUM CHLORIDE 0.9% 250ML 250 ML IVPB SCH (21:57)
[2020-03-16] MEDS ORDERED: PANTOPRAZOLE SODIUM TAB 40 MG PO ONE (04:05)
[2020-03-16] MEDS: PANTOPRAZOLE SODIUM TAB 40 MG PO SCH (05:50)
--- NOTE | 2020-03-16 06:27 | RAD ---
EXAM: XR Chest, 1 View CLINICAL HISTORY: COVID PNA TECHNIQUE: Frontal view of the chest. COMPARISON: 03/15/2020 FINDINGS: Lungs: Worsening bilateral groundglass and parenchymal infiltrates. Pleural space: No pneumothorax. No pleural effusion. Heart: Normal cardiac size and configuration. Mediastinum: No abnormality noted. Bones/joints: No osseous destruction or sclerosis noted. Tubes, lines and devices: Stable enlarged cardiac shadow. Right ventricular cardiac pacing device unchanged. IMPRESSION: Worsening covid pneumonia. Electronically signed by: Arina Tang MD 03/16/2020 6:25 AM [employer] [employer] [facility]
[2020-03-16] MEDS: DEXAMETHASONE INJ 10 MG/ML VIAL IV SCH (08:55)
[2020-03-16] MEDS: guaiFENesin ER TAB 600 MG TAB PO SCH ×2 (08:55→20:25)
[2020-03-16] MEDS: FUROSEMIDE 40 MG TAB PO SCH (08:55)
[2020-03-16] MEDS: LINAGLIPTIN 5 MG TAB PO SCH (08:55)
[2020-03-16] MEDS: REMDESIVIR 100 MG in SODIUM CHLORIDE 0.9% 250ML 250 ML IVPB SCH (08:55)
[2020-03-16] MEDS: BIFIDOBACTERIUM INFANTIS 4 MG CAP PO SCH (08:55)
[2020-03-16] MEDS: SPIRONOLACTONE 25 MG TAB PO SCH (08:55)
[2020-03-16] MEDS: CARVEDILOL 12.5 MG TAB PO SCH ×2 (08:55→20:25)
[2020-03-16] MEDS: ENALAPRIL MALEATE 5 MG TAB PO SCH ×2 (08:56→20:25)
[2020-03-16] MEDS: ALBUTEROL INHALER 64 PUFF/8GM INH SCH ×4 (09:18→20:32)
[2020-03-16] MEDS: ENOXAPARIN SODIUM 100 MG/ML SYG SUBCU SCH ×2 (11:59→23:15)
[2020-03-16] MEDS: INSULIN LISPRO 100 UNITS/ML PEN SUBCU SCH ×4 (12:31→20:25)
[2020-03-16] MEDS ORDERED: BENZONATATE PERLES 100 MG CAP PO PRN (15:54)
[2020-03-16] MEDS ORDERED: CHLORPHENIRAMINE W/HYDROCODONE 5 ML UD PO PRN (15:54)
[2020-03-16] MEDS ORDERED: DIPHENOXYLATE HCL/ATROPINE 2.5 MG TAB PO PRN (19:52)
[2020-03-16] MEDS ORDERED: DIPHENOXYLATE HCL/ATROPINE 2.5 MG TAB ONE (20:11)
[2020-03-16] MEDS: FINASTERIDE 5 MG TAB PO SCH (20:25)
[2020-03-16] MEDS: cefTRIAXone SODIUM 1 GM in SODIUM CHL 0.9% 50ML MIN-BAG+ 50 ML IVPB SCH (21:15)
[2020-03-16] MEDS: AZITHROMYCIN IV 500 MG in SODIUM CHLORIDE 0.9% 250ML 250 ML IVPB SCH (21:50)
[2020-03-17] MEDS: PANTOPRAZOLE SODIUM TAB 40 MG PO SCH (06:11)
[2020-03-17] MEDS ORDERED: metFORMIN HCL 500 MG TAB PO SCH ×2 (07:30→21:00)
[2020-03-17] MEDS: ALBUTEROL INHALER 64 PUFF/8GM INH SCH ×4 (08:00→20:59)
--- NOTE | 2020-03-17 08:33 | PN ---
SUPERVISING PHYSICIAN: Og Samaniego M.D. DATE: 03/16/20 SUBJECTIVE: The patient is sitting up in bed. He continues to have shortness of breath, especially with any exertion. He had a very difficult time getting up to the bathroom. He has also has had some diarrhea that has slightly worsened since he came to the hospital. OBJECTIVE: VITAL SIGNS: Temperature 97.9, heart rate 58, blood pressure 127/72, respiratory rate 20, O2 saturation 90% on 4 liters nasal cannula. RESPIRATORY: Diminished throughout. CARDIAC: Regular rate and rhythm. NEUROLOGIC: He is awake, alert and oriented times three. LABORATORY: WBCs are 8,800 with hemoglobin 13.2, hematocrit 38.4. He has a left shift on his differential. Fibrinogen is 654. D-dimer 1,320. Electrolytes are basically within normal limits. Creatinine kinase 553, troponin 0.1. C-reactive protein 8.8. AST 75, ALT 72. RADIOLOGY: Chest x-ray shows worsening Covid pneumonitis. ASSESSMENT: 1. COVID-19 pneumonitis with exertional hypoxia. 2. Bilateral pneumonia, secondary to #1, diagnosed with COVID greater than 10 days previously, previously treated with azithromycin. 3. Elevated troponin, likely due to underlying congestive heart failure with slight exacerbation due to ischemic demand from COVID pneumonia. 4. Elevated BNP with no formal mention of congestive heart failure with echocardiogram pending. 5. Hypomagnesemia. 6. Elevated transaminases with some evidence of fatty liver disease on CT. 7. Question of cholelithiasis noted on CT on admission. 8. Diabetes mellitus, type 2, on oral therapy. 9. History of previous myocardial infarctions. 10. Hypertension. 11. History of benign prostatic hypertrophy. PLAN: We will continue present supportive care including COVID-19 guidelines. I will repeat his lab and a chest x-ray tomorrow. Will have aggressive pulmonary hygiene. I have also ordered stool studies. He asked that his carbohydrates be limited on his dinner tray so I have ordered a change in his diet. He may need to go home on oxygen. We will continue to try to wean that down. Will follow and treat as needed. #[id number] [facility]
--- NOTE | 2020-03-17 08:59 | RAD ---
EXAM: XR Chest, 1 View CLINICAL HISTORY: COVID PNA TECHNIQUE: Frontal view of the chest. COMPARISON: 03/16/2020 FINDINGS: Lungs: Chronic obstructive changes present with stable bilateral interstitial and airspace consolidation. Pleural space: No pneumothorax. No pleural effusion. Heart: Normal cardiac size and configuration. Mediastinum: No abnormality noted. Bones/joints: No osseous destruction or sclerosis noted. Tubes, lines and devices: Stable cardiac enlargement. Stable cardiac pacing device. IMPRESSION: Stable abnormalities as above. Electronically signed by: Arina Tang MD 03/17/2020 8:58 AM [facility]
[2020-03-17] MEDS: CARVEDILOL 12.5 MG TAB PO SCH ×2 (09:10→20:02)
[2020-03-17] MEDS: guaiFENesin ER TAB 600 MG TAB PO SCH ×2 (09:10→20:01)
[2020-03-17] MEDS: ENALAPRIL MALEATE 5 MG TAB PO SCH ×2 (09:10→20:02)
[2020-03-17] MEDS: SPIRONOLACTONE 25 MG TAB PO SCH (09:11)
[2020-03-17] MEDS: DEXAMETHASONE INJ 10 MG/ML VIAL IV SCH (09:11)
[2020-03-17] MEDS: BIFIDOBACTERIUM INFANTIS 4 MG CAP PO SCH (09:11)
[2020-03-17] MEDS: FUROSEMIDE 40 MG TAB PO SCH (09:11)
[2020-03-17] MEDS: REMDESIVIR 100 MG in SODIUM CHLORIDE 0.9% 250ML 250 ML IVPB SCH (09:12)
[2020-03-17] MEDS: LINAGLIPTIN 5 MG TAB PO SCH (09:15)
[2020-03-17] MEDS: INSULIN LISPRO 100 UNITS/ML PEN SUBCU SCH ×4 (11:35→20:07)
[2020-03-17] MEDS: ENOXAPARIN SODIUM 100 MG/ML SYG SUBCU SCH ×2 (12:21→22:49)
[2020-03-17] MEDS ORDERED: LOPERAMIDE CAP 2 MG CAP PO PRN (17:38)
[2020-03-17] MEDS ORDERED: metFORMIN HCL 500 MG TAB ONE (19:34)
[2020-03-17] MEDS: FINASTERIDE 5 MG TAB PO SCH (20:01)
[2020-03-17] MEDS: IV SET AND CAP CHANGE INJ INJ SCH (21:30)
[2020-03-17] MEDS: cefTRIAXone SODIUM 1 GM in SODIUM CHL 0.9% 50ML MIN-BAG+ 50 ML IVPB SCH (21:30)
[2020-03-17] MEDS: AZITHROMYCIN IV 500 MG in SODIUM CHLORIDE 0.9% 250ML 250 ML IVPB SCH (22:04)
[2020-03-18] MEDS: PANTOPRAZOLE SODIUM TAB 40 MG PO SCH (05:49)
[2020-03-18] MEDS: INSULIN LISPRO 100 UNITS/ML PEN SUBCU SCH ×3 (08:05→19:50)
[2020-03-18] MEDS: ALBUTEROL INHALER 64 PUFF/8GM INH SCH ×3 (08:15→16:00)
--- NOTE | 2020-03-18 09:09 | PN ---
SUPERVISING PHYSICIAN: Og Samaniego M.D. DATE: 03/17/20 SUBJECTIVE: The patient is sitting up in his chair. His diarrhea has improved and he complains that the bed makes his back hurt and he would rather sit up in the chair. We discussed his plan of care and encouraged him to get up and move around as much as possible. He does require assistance due to his hypoxia. OBJECTIVE: VITAL SIGNS: Temperature 97.1, heart rate 69, blood pressure 133/80, respiratory rate 18, it goes up as high as 24 to 26 with exertion. His oxygen saturation is 80 to 90% on 4 liters nasal cannula. He does become hypoxic with minimal exertion. RESPIRATORY: Diminished breath sounds throughout. CARDIAC: Regular rate and rhythm. NEUROLOGIC: He is awake, alert and oriented times three. LABORATORY: They were unable to obtain blood for his CBC. Electrolytes are basically within normal limits. Creatinine kinase 374. Stool for occult blood was positive. Stool showed absence elevated fecal lactoferrin. Stool culture pending. C-difficile was negative for antigen and toxin and his rotavirus was negative. RADIOLOGY: Chest x-ray shows stable chronic obstructive changes present with stable bilateral interstitial lung airspace consolidation. ASSESSMENT: 1. COVID-19 pneumonitis with exertional hypoxia. 2. Bilateral pneumonia, secondary to #1, diagnosed with COVID greater than 10 days previously, previously treated with azithromycin. 3. Elevated troponin, likely due to underlying congestive heart failure with slight exacerbation due to ischemic demand from COVID pneumonia. 4. Elevated BNP with no formal mention of congestive heart failure with echocardiogram pending. 5. Hypomagnesemia. 6. Elevated transaminases with some evidence of fatty liver disease on CT. 7. Question of cholelithiasis noted on CT on admission. 8. Diabetes mellitus, type 2, on oral therapy. 9. History of previous myocardial infarctions. 10. Hypertension. 11. History of benign prostatic hypertrophy. PLAN: We will continue present supportive care and continue to try to wean oxygen as tolerated. Physical therapy has recommended patient to go home with physical therapy and home health. I will hold on lab for tomorrow and order it for Thursday. We will monitor and treat as needed. #[id number] MTDD
[2020-03-18] MEDS: FUROSEMIDE 40 MG TAB PO SCH (09:19)
[2020-03-18] MEDS: ENALAPRIL MALEATE 5 MG TAB PO SCH (09:19)
[2020-03-18] MEDS: BIFIDOBACTERIUM INFANTIS 4 MG CAP PO SCH (09:20)
[2020-03-18] MEDS: CARVEDILOL 12.5 MG TAB PO SCH (09:20)
[2020-03-18] MEDS: DEXAMETHASONE INJ 10 MG/ML VIAL IV SCH (09:20)
[2020-03-18] MEDS: SPIRONOLACTONE 25 MG TAB PO SCH (09:20)
[2020-03-18] MEDS: LINAGLIPTIN 5 MG TAB PO SCH (09:20)
[2020-03-18] MEDS: guaiFENesin ER TAB 600 MG TAB PO SCH (09:20)
[2020-03-18] MEDS: REMDESIVIR 100 MG in SODIUM CHLORIDE 0.9% 250ML 250 ML IVPB SCH (09:32)
[2020-03-18 14:31] VITALS: TEMP 97.2
[2020-03-18] MEDS ORDERED: HALOPERIDOL LACTATE INJ 5 MG/ML VIAL IM PRN (15:04)
[2020-03-18] MEDS ORDERED: HALOPERIDOL LACTATE INJ 5 MG/ML VIAL ONE (15:17)
[2020-03-18] MEDS: ENOXAPARIN SODIUM 100 MG/ML SYG SUBCU SCH (15:23)
[2020-03-18] MEDS ORDERED: ZIPRASIDONE INJ 20 MG/ML VIAL IM PRN (17:31)
[2020-03-18 17:37] VITALS: BP 158/68; O2SAT 93
[2020-03-18] MEDS ORDERED: ZIPRASIDONE INJ 20 MG/ML VIAL IM ONE (17:41)
[2020-03-18] MEDS ORDERED: PROPOFOL 200 MG/20 ML VIAL IV ONE ×2 (17:53→18:53)
[2020-03-18] MEDS ORDERED: SUCCINYLCHOLINE CHLORIDE 200 MG/10 ML VIAL ONE (17:54)
[2020-03-18] MEDS ORDERED: PROPOFOL 50 ML IV ONE ×2 (17:55→19:53)
--- NOTE | 2020-03-18 19:02 | RAD ---
EXAM DESCRIPTION: Chest,1 View CLINICAL HISTORY: 74 years Male ET placement COMPARISON: 03/17/2020. FINDINGS: The right lateral lung is incompletely visualized. Endotracheal tube tip is at the origin of the right mainstem bronchus. It could be pulled back 2 cm for better positioning. NG tube tip in the stomach. Enlarged but stable cardiac silhouette. Changes from previous sternotomy. Left cardiac pacemaker/defibrillator device. The tip of the electrode appears disconnected from the more proximal portion of the electrode on this study. There are bilateral airspace opacities greater on the right. The opacities appear slightly increased in comparison to the previous study. No pneumothorax is identified on this study. IMPRESSION: Endotracheal tube tip is at the origin of the right mainstem bronchus. It could be pulled back 2 cm for better positioning. The pacemaker/defibrillator tip appears disconnected from the more proximal portion of the electrode. Attention on follow-up films also recommended. Bilateral lung opacities which appear increased compared to the previous study. The findings were called to Lissette Gomes NP at 6:59 PM central time. Electronically signed by: Luis Carlos Montelongo MD 03/18/2020 7:00 PM [facility]
[2020-03-18] MEDS ORDERED: SODIUM CHLORIDE 0.9% 500ML 500 ML ONE (19:03)
--- NOTE | 2020-03-18 19:20 | RAD ---
EXAM DESCRIPTION: Chest,1 View CLINICAL HISTORY: 74 years Male tube placement COMPARISON: 03/18/2020 6:15 PM FINDINGS: Cardiac size is unchanged. Bilateral pulmonary opacities without improvement. Suspect small effusions may be present. Endotracheal tube is 1.3 cm above the jonas. This is only been pulled back minimally. Recommend withdrawing the endotracheal tube at least [address] Defibrillator in the right ventricle. Lead appears intact. IMPRESSION: Endotracheal tube has been pulled back slightly when compared to the previous examination and is still directed at the origin of the right mainstem bronchus approximately 1.3 cm above the jonas. Recommend withdrawing this 1.0 to 1.5 cm Bilateral pulmonary opacities without improvement Electronically signed by: Mary Montelongo MD 03/18/2020 7:18 PM [facility]
[2020-03-18] MEDS ORDERED: DEXTROSE 5% 250ML 250 ML ONE (19:29)
[2020-03-18] MEDS ORDERED: NOREPINEPHRINE BITARTRATE 4 MG/4 ML VIAL IVPB ONE (19:29)
[2020-03-18] MEDS ORDERED: MIDAZOLAM HCL 10 MG/10 ML INJ IV ONE ×2 (19:53→20:23)
[2020-03-18] MEDS ORDERED: ETOMIDATE INJECTION 2 MG/ML 20ML VIAL IV ONE (19:53)
--- NOTE | 2020-03-30 08:38 | OP ---
SUPERVISING PHYSICIAN: Og Samaniego MD DATE OF PROCEDURE: 03/18/20 TIME: 1809 INDICATION: 1. Respiratory distress. PROCEDURE: 1. Endotracheal intubation. PROVIDER: PRAKASH Connors PROCEDURE: A time-out was completed verifying the correct patient, procedure, site, positioning and special equipment. The patient was placed in the flat position. Sedation was obtained using 20 mg of Etomidate. He was easily ventilated using an Ambu Bag. He was given 100 mg of succinylcholine. He continued to be ventilated with the Ambu Bag. The GlideScope was utilized as a 7.5-Setswana endotracheal tube was placed and inserted into the oropharynx. There was a Grade 1 view of the vocal cords. It was inserted and visualized going through the vocal cords. The stylette was removed. Colorimetric changes were visualized on the CO2 meter. Bilateral breath sounds were heard bilaterally in both lung altman equally. The endotracheal tube was placed 26 cm at the teeth. A chest x-ray was ordered to assess for pneumothorax and verify endotracheal tube placement. The patient tolerated the procedure well and there were no complications. #[id number] MTDD
--- NOTE | 2020-03-30 10:22 | PN ---
SUPERVISING PHYSICIAN: Og Samaniego MD CRITICAL CARE NOTE DATE: 03/18/20 SUBJECTIVE: Mr. Saenz progressively needed higher oxygen throughout the day. He had actually become quite confused and required some sedation as he was pulling his BiPAP off. He could not understand why he needed it. His O2 saturations dropped, an ABG was drawn and the patient was set up for intubation. OBJECTIVE: VITAL SIGNS: Temperature 97.2, heart rate between 80 and 100, blood pressure 158/68, respiratory rate in the mid to upper 20s. His O2 saturations were 86- 90% on 100%. LUNGS: Diminished throughout. NEUROLOGIC: The patient was confused and agitated. An ABG was drawn. pCO2 31, pO2 49, bicarb 21.8, pH 7.456, O2 saturation 86%. The patient was intubated and after intubation, he was placed on a propofol drip and it was titrated to keep the patient calm. At one point, his systolic blood pressure dropped to the 80s and he continued to be agitated, so the propofol drip was continued. He was given 100 mg of succinylcholine as well as 5 mg of Versed. His blood pressure was monitored. His propofol was titrated to keep his systolic blood pressure above 90. The patient was monitored closely until transport arrived to transport the patient to [facility] in [place]. TOTAL CRITICAL CARE TIME: Excluding procedures, 35 minutes #[id number] MTDD
--- NOTE | 2020-03-30 11:18 | DS ---
SUPERVISING PHYSICIAN: Og Samaniego MD DATE OF DISCHARGE: 03/18/2020 DISCHARGE DIAGNOSES: 1. Acute respiratory failure secondary to COVID-19 pneumonitis. 2. Bilateral pneumonia secondary to #1. 3. Elevated troponin, likely due to underlying congestive heart failure with slight exacerbation due to ischemic demand due to COVID pneumonia. 4. Elevated BNP with no previous diagnosis of congestive heart failure. 5. Elevated transaminases, 6. Diabetes mellitus. 7. History of previous myocardial infarctions. 8. Hypertension. 9. Benign prostatic hypertrophy. HISTORY OF PRESENT ILLNESS: This is a 74-year-old male patient who was admitted to the hospital due to Covid pneumonitis and was actually found to be to be positive on 03/08/20 and he had been symptomatic several days prior to admission. He was started on azithromycin. Prior to coming into the hospital, he had diarrhea and was given Lomotil. He has complaints of his oxygen saturation being in the 80s at home and he had increasing shortness of breath. He had an associated headache with generalized weakness, fatigue, chills, but had no fever. Workup in the ER showed white count 5,900 with a D-dimer of 2,370, fibrinogen at 818. Creatinine 1.24 and troponin was elevated at 0.17. C-reactive protein was 15.9, BNP 904. CTA showed no evidence of thoracic aortic dissection and no obvious pulmonary embolism. He was started on routine Covid- 19 medications of Remdesivir, Lovenox, Decadron, azithromycin and Rocephin. He had aggressive pulmonary hygiene with bronchodilator and admitted to the hospital in stable condition. HOSPITAL COURSE: The patient was continued on the Covid-19 guidelines and continued with elevated troponin. There were no complaints of chest pain or EKG changes. Most likely the elevated troponin was due to ischemic demand due to Covid-19. An echocardiogram was done. His oxygen had to be titrated due to greater oxygen demands. Over the next several days, his oxygen saturation was titrated up and down as his condition warranted. The Covid guidelines were followed closely and he continued to need higher amounts of oxygen. He actually ended up being on BiPAP and became somewhat confused, most likely secondary to hypoxemia. He had a difficult time leaving his BiPAP mask on and had to be sedated. He got to the point where his oxygen saturations were decreasing. His oxygen demand was increasing, his ABGs were indicating need for more oxygen and it was decided that he would be intubated. He was intubated without any issues and was placed on a propofol drip after intubation. [facility] accepted the patient in transfer and he will be discharged in stable condition to [facility]. LABORATORY: WBCs were 5,900 and on discharge were 9,600. Hemoglobin was stable at 13.2 and hematocrit 38.6. D-dimer initially was 2,370 and went down as low as 1,220 and today it is 3,880. Blood gas prior to the intubation showed a PC02 of 31, P02 of 49, bicarb 21.8, pH 2.456, oxygen saturation 86%. Electrolytes were unremarkable. He did have a lactic acid of 2.5 prior to transfer. BNP was 1,060. Creatinine kinase 374 with troponin of 0.1. Stool for occult blood was positive. Stool cultures were pending. RADIOLOGY: Reports are per the EMR. DISCHARGE PLAN: Mr. Saenz will be discharged to [facility] facility in stable but critical condition. His list of home medications as well as his records here at the hospital will be sent with the patient. DISCHARGE MEDICATIONS: 1. Metformin,. 2. Finasteride. 3. Vytorin. 4. Spironolactone. 5. Furosemide. 6. Enalapril. 7. Tradjenta. 8. Lomotil. 9. Carvedilol. 10. Diprivan. #[id number] MTDD
== END 2020-03-18 20:38 | disposition short-term general hospital (02) | DRG 208 ==
LOC: ER 16:45 → MS 20:24 → OBSVTOIN 20:24
PROVIDERS: ADMIT Nurse Practitioner Family; ATTEND Nurse Practitioner Acute Care
PROC: XW033E5 Introduction of Remdesivir Anti-infective into Peripheral Vein, Percutaneous Approach, New Technology Group 5 (ICD-10-PCS; 2020-03-14)
PROC: 0BH17EZ Insertion of Endotracheal Airway into Trachea, Via Natural or Artificial Opening (ICD-10-PCS; principal; 2020-03-18)
PROC: 5A1935Z Respiratory Ventilation, Less than 24 Consecutive Hours (ICD-10-PCS; 2020-03-18)
DX: U07.1 COVID-19 (principal); J12.82 Pneumonia due to coronavirus disease 2019; J96.01 Acute respiratory failure with hypoxia; I24.8 Other forms of acute ischemic heart disease; E83.51 Hypocalcemia; E83.42 Hypomagnesemia; I11.0 Hypertensive heart disease with heart failure; I50.9 Heart failure, unspecified; N40.0 Benign prostatic hyperplasia without lower urinary tract symptoms; E11.9 Type 2 diabetes mellitus without complications; I25.2 Old myocardial infarction; Z95.1 Presence of aortocoronary bypass graft; Z79.84 Long term (current) use of oral hypoglycemic drugs